=== PATIENT | male | born 1980 | race Caucasian/White ===

== ENCOUNTER 2019-06-01 08:21 | Emergency (ER) | payer BC ==
[2019-06-01 08:48] LABS: Bilirubin Negative (Negative); Blood, Urine Negative (Negative); Clarity Turbid (Clear); Glucose, Urine (Dipstick) 70 mg/dL (Negative); Leukocyte Negative Leu/uL (Negative); Nitrite Negative (Negative); Protein, Urine (Dipstick) Negative (Neg-Trace); Urobilinogen Normal mg/dL (Less than 2)
[2019-06-01] MEDS ORDERED: Morphine 4 MG/ML VIAL ONE ×2 (08:49→10:31)
[2019-06-01] MEDS ORDERED: Ondansetron PF 4 MG/2 ML Vial ONE (08:50)
[2019-06-01 08:52] LABS: #Lymphocytes 0.7 thou/uL (1.20-3.40); #Monocytes 0.4 thou/uL (0.11-0.59); #Neutrophils 8.8 thou/uL (1.40-6.50); %Basophils 0.1 % (0.0-1.0); %Eosinophils 0.4 % (0.0-10.0); %Lymphocytes 7.2 % (21.0-51.0); %Neutrophils 88.4 % (42.0-75.0); Hemoglobin 15.6 g/dL (14.0-18.0); Mean Corpuscular HGB CONC 34.1 g/dL (32.0-36.0); Mean Corpuscular Hemoglobin 30.9 pg (27.0-31.0); Mean Corpuscular Volume 90.6 fL (78.0-98.0); Mean Platelet Volume 7.2 fL (7.4-10.4); Platelet Count 217 thou/uL (130-400); RBC Distribution Width 11.1 % (11.5-14.5); Red Blood Cell (RBC) Count 5.04 mill/uL (4.70-6.10); White Blood Cell (WBC) Count 9.9 thou/uL (4.8-10.8)
[2019-06-01 09:14] LABS: ALT (SGPT) 30 U/L (8-55); AST (SGOT) 22 U/L (5-34); Albumin 4.7 g/dL (3.5-5.0); Alkaline Phosphatase 69 U/L (40-110); Anion Gap 14 mmol/L (10-20); BUN (Urea Nitrogen) 12 mg/dL (8.9-20.6); Calc. Creatinine Clearance 0 mL/min (70-130); Calcium 9.2 mg/dL (7.8-10.44); Carbon Dioxide 25 mmol/L (22-29); Chloride 101 mmol/L (98-107); Estimated GFR-MDRD 83; Globulin 2.9 g/dL (2.4-3.5); Glucose 147 mg/dL (70-105); Lipase 11 U/L (8-78); Potassium 3.5 mmol/L (3.5-5.1); Protein, Total 7.6 g/dL (6.0-8.3); Sodium 136 mmol/L (136-145)
--- NOTE | 2019-06-01 09:24 | CT ---
CT ABDOMEN AND PELVIS WITH IV CONTRAST: Date: 06/01/2019 HISTORY: Epigastric pain. Abdominal pain radiating to back. FINDINGS: There are no previous exams for comparison. There is a tiny calcified granuloma in the right lung base. Liver, spleen, pancreas, adrenal glands, and kidneys are normal. No calcified gallstones are seen. No free air, free fluid, or lymphadenopathy seen in the abdomen or pelvis. The small bowel loops are not abnormally dilated. A normal appearing appendix is seen. There is a fat-containing umbilical hernia. No acute osseous abnormalities are note d. IMPRESSION: No evidence of acute process. POS: OFF
--- NOTE | 2019-06-01 09:47 | ULT ---
ULTRASOUND GALLBLADDER RIGHT UPPER QUADRANT: CLINICAL HISTORY: Abdominal pain. COMPARISON: None. FINDINGS: Pancreas: Obscured by bowel gas. Liver:Hepatic parenchyma has a normal echotexture. No hepatic masses or intrahepatic biliary dilatati on.. Right hepatic lobe: 18.6 cm. Gallbladder: Multiple echogenic foci within the lumen of the gallbladder with shadowing. There is son ographic evidence of sludge and stones. Gallbladder wall is thickened, measuring 0.5 cm. Carolina's sign:Negative. Portal Vein: Patent. Appropriate directional flow. Bile ducts: Common bile diameter 0.55 cm. Right kidney: No hydronephrosis. Right kidney measures 11.1 cm in length. IMPRESSION: 1. Sonographic evidence for cholelithiasis with possible sludge. Gallbladder wall is thickened. Howev er, no pericholecystic fluid. Negative Carolina's sign. Better interrogation with HIDA scan is recommended. 2. Common bile duct diameter at the upper limits of normal. ERCP or MRCP if there is concern for chol edocholithiasis. Transcribed Date/Time: 06/01/2019 10:23 AM
[2019-06-01] MEDS ORDERED: Lidocaine 2% PF 100 mg/5 ml Syringe ONE (12:30)
[2019-06-01] MEDS ORDERED: Ketorolac Tromethamine 30 MG/ML VIAL ONE (12:30)
[2019-06-01] MEDS ORDERED: Iopamidol 370 76% 100 ML VIAL ONE (14:28)
== END 2019-06-01 12:40 | disposition home or self-care (01) ==
LOC: ERS 08:21
DX: K80.70 Calculus of gallbladder and bile duct without cholecystitis without obstruction (principal); R11.2 Nausea with vomiting, unspecified
CPT/HCPCS: 74177; 76705; 80053; 81003; 83690; 85025; 93005; 96361; 96372; 96374; 96375; 96376; J1885; J2001; J2270; J2405; Q9967

== ENCOUNTER 2019-08-03 12:27 | Outpatient (CLI) | payer BC ==
--- NOTE | 2019-08-03 15:16 | MRI ---
MRI OF THE ABDOMEN WITHOUT AND WITH CONTRAST: COMPARISON: CT abdomen/pelvis 06/01/2019. HISTORY: Abnormal LFTs since gallbladder removal in May. TECHNIQUE: Multiplanar, multisequence MR images were obtained of the abdomen without and with IV contrast. MRCP images were performed. FINDINGS: The gallbladder is absent. The common bile duct is normal in caliber. No intrahepatic biliary dilat ation is seen. There is a 2-3 mm nonenhancing focus of high T2 signal in the left lobe of the liver which likely rep resents a tiny hepatic cyst. No loss of signal is seen in the liver on out of phase images to sugges t fatty infiltration. The adrenal glands, kidneys, spleen, and pancreas are unremarkable. No free fluid is seen in the abd omen. No abdominal adenopathy is seen. No marrow signal abnormality is present. IMPRESSION: 1. Tiny left hepatic cyst 2. No significant hepatic or biliary abnormality. POS: C
== END 2019-08-03 12:28 | disposition home or self-care (01) ==
LOC: SCSMRI 12:27
PROVIDERS: ATTEND Internal Medicine Gastroenterology
DX: R94.5 Abnormal results of liver function studies (principal); K76.89 Other specified diseases of liver
CPT/HCPCS: 74183